=== PATIENT | male | born 1945 | race Caucasian/White ===

== ENCOUNTER → 2019-04-18 | Outpatient (CLI) | payer OTHER | LOC: HYPER 09:32 | DX: E11.622 Type 2 diabetes mellitus with other skin ulcer (principal); I87.333 Chronic venous hypertension (idiopathic) with ulcer and inflammation of bilateral lower extremity; L97.821 Non-pressure chronic ulcer of other part of left lower leg limited to breakdown of skin; L97.811 Non-pressure chronic ulcer of other part of right lower leg limited to breakdown of skin; E11.22 Type 2 diabetes mellitus with diabetic chronic kidney disease; I13.0 Hypertensive heart and chronic kidney disease with heart failure and stage 1 through stage 4 chronic kidney disease, or unspecified chronic kidney disease; N18.4 Chronic kidney disease, stage 4 (severe); I50.9 Heart failure, unspecified; E11.39 Type 2 diabetes mellitus with other diabetic ophthalmic complication; E11.43 Type 2 diabetes mellitus with diabetic autonomic (poly)neuropathy; E11.51 Type 2 diabetes mellitus with diabetic peripheral angiopathy without gangrene; I87.2 Venous insufficiency (chronic) (peripheral); L30.9 Dermatitis, unspecified; I25.10 Atherosclerotic heart disease of native coronary artery without angina pectoris; I48.91 Unspecified atrial fibrillation; K21.9 Gastro-esophageal reflux disease without esophagitis; G47.30 Sleep apnea, unspecified; R60.0 Localized edema; R21 Rash and other nonspecific skin eruption; F19.10 Other psychoactive substance abuse, uncomplicated; F17.200 Nicotine dependence, unspecified, uncomplicated; Z79.01 Long term (current) use of anticoagulants; Z79.84 Long term (current) use of oral hypoglycemic drugs ==

== ENCOUNTER → 2019-05-08 | Outpatient (CLI) | payer OTHER | LOC: HYPER 08:06 | DX: E11.622 Type 2 diabetes mellitus with other skin ulcer (principal); I83.218 Varicose veins of right lower extremity with both ulcer of other part of lower extremity and inflammation; L97.811 Non-pressure chronic ulcer of other part of right lower leg limited to breakdown of skin; I83.228 Varicose veins of left lower extremity with both ulcer of other part of lower extremity and inflammation; L97.821 Non-pressure chronic ulcer of other part of left lower leg limited to breakdown of skin; R21 Rash and other nonspecific skin eruption; L30.9 Dermatitis, unspecified; R60.0 Localized edema; E11.51 Type 2 diabetes mellitus with diabetic peripheral angiopathy without gangrene; E11.43 Type 2 diabetes mellitus with diabetic autonomic (poly)neuropathy; E11.22 Type 2 diabetes mellitus with diabetic chronic kidney disease; I13.0 Hypertensive heart and chronic kidney disease with heart failure and stage 1 through stage 4 chronic kidney disease, or unspecified chronic kidney disease; N18.4 Chronic kidney disease, stage 4 (severe); I50.9 Heart failure, unspecified; I25.10 Atherosclerotic heart disease of native coronary artery without angina pectoris; I48.91 Unspecified atrial fibrillation; G47.30 Sleep apnea, unspecified; K21.9 Gastro-esophageal reflux disease without esophagitis; M19.90 Unspecified osteoarthritis, unspecified site; F17.210 Nicotine dependence, cigarettes, uncomplicated; Z79.01 Long term (current) use of anticoagulants; Z79.84 Long term (current) use of oral hypoglycemic drugs ==

== ENCOUNTER → 2019-06-12 | Outpatient (CLI) | payer OTHER | LOC: HYPER 08:04 | DX: I87.333 Chronic venous hypertension (idiopathic) with ulcer and inflammation of bilateral lower extremity (principal); E11.622 Type 2 diabetes mellitus with other skin ulcer; I70.238 Atherosclerosis of native arteries of right leg with ulceration of other part of lower leg; L97.811 Non-pressure chronic ulcer of other part of right lower leg limited to breakdown of skin; I70.248 Atherosclerosis of native arteries of left leg with ulceration of other part of lower leg; L97.821 Non-pressure chronic ulcer of other part of left lower leg limited to breakdown of skin; R21 Rash and other nonspecific skin eruption; L30.9 Dermatitis, unspecified; E11.43 Type 2 diabetes mellitus with diabetic autonomic (poly)neuropathy; E11.51 Type 2 diabetes mellitus with diabetic peripheral angiopathy without gangrene; I25.10 Atherosclerotic heart disease of native coronary artery without angina pectoris; I48.91 Unspecified atrial fibrillation; K21.9 Gastro-esophageal reflux disease without esophagitis; E11.22 Type 2 diabetes mellitus with diabetic chronic kidney disease; I13.2 Hypertensive heart and chronic kidney disease with heart failure and with stage 5 chronic kidney disease, or end stage renal disease; I50.9 Heart failure, unspecified; N18.5 Chronic kidney disease, stage 5; M19.90 Unspecified osteoarthritis, unspecified site; G47.30 Sleep apnea, unspecified; F17.290 Nicotine dependence, other tobacco product, uncomplicated; Z79.84 Long term (current) use of oral hypoglycemic drugs; Z79.01 Long term (current) use of anticoagulants ==

== ENCOUNTER → 2021-01-01 | Outpatient (CLI) | payer OTHER | LOC: HYPER 08:50 | PROVIDERS: ATTEND Emergency Medicine | DX: S51.812A Laceration without foreign body of left forearm, initial encounter (principal); S51.811A Laceration without foreign body of right forearm, initial encounter; S61.412A Laceration without foreign body of left hand, initial encounter; S41.111A Laceration without foreign body of right upper arm, initial encounter; S41.112A Laceration without foreign body of left upper arm, initial encounter; L89.893 Pressure ulcer of other site, stage 3; I89.0 Lymphedema, not elsewhere classified; E11.22 Type 2 diabetes mellitus with diabetic chronic kidney disease; I13.0 Hypertensive heart and chronic kidney disease with heart failure and stage 1 through stage 4 chronic kidney disease, or unspecified chronic kidney disease; I50.9 Heart failure, unspecified; N18.4 Chronic kidney disease, stage 4 (severe); E11.43 Type 2 diabetes mellitus with diabetic autonomic (poly)neuropathy; E11.51 Type 2 diabetes mellitus with diabetic peripheral angiopathy without gangrene; E11.39 Type 2 diabetes mellitus with other diabetic ophthalmic complication; E11.649 Type 2 diabetes mellitus with hypoglycemia without coma; E55.9 Vitamin D deficiency, unspecified; E87.5 Hyperkalemia; L29.8 Other pruritus; I83.90 Asymptomatic varicose veins of unspecified lower extremity; G47.30 Sleep apnea, unspecified; I25.10 Atherosclerotic heart disease of native coronary artery without angina pectoris; I48.91 Unspecified atrial fibrillation; G47.00 Insomnia, unspecified; R18.8 Other ascites; R42 Dizziness and giddiness; I48.21 Permanent atrial fibrillation; R09.89 Other specified symptoms and signs involving the circulatory and respiratory systems; M19.90 Unspecified osteoarthritis, unspecified site; K76.0 Fatty (change of) liver, not elsewhere classified; K21.9 Gastro-esophageal reflux disease without esophagitis; K74.60 Unspecified cirrhosis of liver; F17.200 Nicotine dependence, unspecified, uncomplicated; Z96.651 Presence of right artificial knee joint; Z87.898 Personal history of other specified conditions; Z90.49 Acquired absence of other specified parts of digestive tract; Z98.49 Cataract extraction status, unspecified eye; X58.XXXA Exposure to other specified factors, initial encounter; Y93.89 Activity, other specified; Y92.89 Other specified places as the place of occurrence of the external cause; Y99.8 Other external cause status ==